=== PATIENT | male | born 1955 | race Two or more races ===

== ENCOUNTER 2020-12-01 13:00 | Emergency (ER) | payer MEDICARE, BC ==
[~2020-12-01] VITALS: Ht 167.6 cm; Wt 90.6 kg
[2020-12-01] MEDS ORDERED: FAMOTIDINE 20 MG/2 ML IVPush ONE (13:30)
[2020-12-01] MEDS ORDERED: SODIUM CHLORIDE FLUSH 10ML SYR IVF ONE (13:30)
[2020-12-01] MEDS ORDERED: TRANEXAMIC ACID 100 MG/ML, 10ML TP ONE (13:30)
[2020-12-01] MEDS ORDERED: DIPHENHYDRAMINE 50 MG/ML, 1ML IVPush ONE (13:30)
[2020-12-01] MEDS ORDERED: LIDOCAINE 1%-EPI 1:100K, 20ML INFIL ONE (13:30)
[2020-12-01] MEDS ORDERED: methylPREDNISolone SOD SUCC 125 MG/2 ML IVPush ONE (13:30)
[2020-12-01] MEDS ORDERED: methylPREDNISolone SOD SUCC 125 MG/2 ML ONE (13:40)
[2020-12-01] MEDS ORDERED: DIPHENHYDRAMINE 50 MG/ML, 1ML ONE (13:40)
[2020-12-01] MEDS ORDERED: LIDOCAINE 1%-EPI 1:100K, 20ML ONE (13:40)
[2020-12-01] MEDS ORDERED: TRANEXAMIC ACID 100 MG/ML, 10ML ONE (13:40)
[2020-12-01] MEDS ORDERED: FAMOTIDINE 20 MG/2 ML ONE (13:41)
[2020-12-01] MEDS ORDERED: SILVER NITRATE STICK TP ONE ×2 (14:33→14:36)
--- NOTE | 2020-12-01 14:52 | NUR ---
REPORT TO SEBASTIAN LARSEN.
--- NOTE | 2020-12-01 15:00 | NUR ---
REPORT FROM ALEX CORTES
--- NOTE | 2020-12-01 15:13 | NUR ---
PT SITTING UPRIGHT IN [place] WITH NOSE CLAMP ON, NO BLEEDING NOTED FROM NOSE AT THIS TIME. PT STATES HE'S FEELING "A LITTLE BIT BETTER". DOES STILL HAVE SWOLLEN TONGUE, ABLE TO TALK. RESP EVEN AND UNLABORED. ABLE TO SWALLOW SECRETIONS. AT BEDSIDE.
[2020-12-01 16:03] VITALS: BP 170/102
== END 2020-12-01 16:08 | disposition home or self-care (01) ==
LOC: ED 16:00
DX: R04.0 Epistaxis (principal); T78.3XXA Angioneurotic edema, initial encounter; T78.49XA Other allergy, initial encounter; I10 Essential (primary) hypertension
CPT/HCPCS: 30901; 96374; 96375; 99284; J1200; J2930